=== PATIENT | female | born 1955 | race Two or more races ===

== ENCOUNTER 2025-06-14 22:40 | Emergency (ER) | payer BC, OTHER ==
[~2025-06-14] VITALS: Ht 160 cm; Wt 88.4 kg
[2025-06-14] MEDS: SODIUM CHLORIDE 0.9% 1,000 ML IVB ONE (23:00)
--- NOTE | 2025-06-14 23:11 | ED.PDOC ---
GI ASSESSMENT HPI Comments 70 year old female presents to the ED with a chief compliant of abdominal pain onset today (06/14/25) about 4 hours prior to ED arrival. Patient began experiencing epigastric pain as well as nausea, vomiting, diarrhea for the past 4 hours. Denies fever, chills, chest pain, shortness of breath, dizziness, headache, dysuria, hematuria, hematemesis, melena. No other symptoms or modifying factors present at this time. Chief Complaint: Abdominal Pain Time Seen by MD: 22:48 Reviewed Notes: Medications, Allergies Allergies: Coded Allergies: NO KNOWN ALLERGIES (Unverified , 06/14/25) Home Meds Active Scripts Ondansetron HCl (Ondansetron Hydrochloride) 8 Mg Tab, 8 MG PO Q6HP PRN, #30 TAB Prov:ABIGAIL SLAUGHTER MD 06/15/25 Information Source: Patient, Relative Mode of Arrival: Ambulatory Timing: Hours Duration: Since onset Prehospital treatment: None Quality: Sharp Severity: Moderate Recent: None Recent Hx of: None Pain Location: Epigastric Modifying Factors: Nothing Associated sign and symptoms: Nausea, Vomiting, Diarrhea, Abdominal Pain Past Medical History PAST MEDICAL HISTORY: Denies Surgical History: Cholecystectomy 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 Family History Family History: Reviewed,noncontributory to illness, No family hx of Cancer, No family hx of DM, No family hx of Heart leopoldo, No family hx of HTN, No family hx ofKidney leopoldo, No family hx of Liver leopoldo, No family hx of Lung leopoldo, No family hx of Stroke Social History Smoker: Non-Smoker Alcohol: Denies ETOH Use Drugs: Denies Drug Use Lives In: Home Constitutional: denies: chills, diaphoresis, fatigue, fever, malaise, sweats, weakness, others EENTM: denies: blurred vision, double vision, ear bleeding, ear discharge, ear drainage, ear pain, ear ringing, eye pain, eye redness, hearing loss, mouth pain, mouth swelling, nasal discharge, nose bleeding, nose congestion, nose pain, photophobia, tearing, throat pain, throat swelling, voice changes, others Respiratory: denies: cough, hemoptysis, orthopnea, SOB at rest, shortness of breath, SOB with excertion, stridor, wheezing, others Cardiovascular: denies: chest pain, dizzy spells, diaphoresis, Dyspnea on exertion, edema, irregular heart beat, left arm pain, lightheadedness, palpitations, PND, syncope, others Gastrointestinal: reports: abdominal pain, diarrhea, nausea, vomiting; denies: abdomen distended, blood streaked bowels, constipated, dysphagia, difficulty swallowing, hematemesis, melena, poor appetite, poor fluid intake, rectal bleeding, rectal pain, others Genitourinary: denies: abnormal vagina bleeding, burning, dyspareunia, dysuria, flank pain, frequency, hematuria, incontinence, pain, , vagina discharge, urgency, others Neurological: denies: dizziness, fainting, headache, left sided numbness, left sided weakness, numbness, paresthesia, pre-existing deficit, right sided numb ness, right sided weakness, seizure, speech problems, tingling, tremors, weakness, others Musculoskeletal: denies: back pain, gout, joint pain, joint swelling, muscle pain, muscle stiffness, neck pain, others Integumetry: denies: bruises, change in color, change in hair/nails, dryness, laceration, lesions, lumps, rash, wounds, others Allergic/Immunocompromised: denies: Difficulty Healing, Frequent Infections, Hives, Itching, others Hematologic/Lymphatic: denies: anemia, blood clots, easy bleeding, easy bruising, swollen glands, others Endocrine: denies: excessive hunger, excessive sweating, excessive thirst, excessive urination, flushing, intolerance to cold, intolerance to heat, unexplained weight gain, unexplained weight loss, others Psychiatric: denies: anxiety, bipolar disorder, depression, hopeless, panic disorder, schizophrenia, sleepless, suicidal, others All Other Systems: Reviewed and Negative Physical Exam General Appearance: Normal HEENT: Normal ENT Inspection, Pharynx Normal, TMs Normal Neck: Full Range of Motion, Non-Tender, Normal, Normal Inspection Respiratory: Chest Non-Tender, Lungs Clear, No Accessory Muscle Use, No Re spiratory Distress, Normal Breath Sounds Cardiovascular: No Edema, No JVD, No Murmur, No Gallop, Normal Peripheral Pulses, Regular Rate/Rhythm Breast Exam: Deferred Gastrointestinal: No Organomegaly, Non Tender, No Pulsatile Mass, Normal Bowel Sounds, Soft Genitalia: Deferred Pelvic: Deferred Rectal: Deferred Extremities: No calf tenderness, Normal capillary refill, Normal inspection, Normal range of motion, Non-tender, No pedal edema Musculoskeletal : Apperance: Normal Neurologic: Alert, it audit manager II-XII nml as Tested, No Motor Deficits, Normal Affect, Normal Mood, No Sensory Deficits Cerebellar Function: Normal Reflexes: Normal Skin: Dry, Normal Color, Warm Lymphatic: No Adenopathy Was a procedure done? Was a procedure done?: No GI differential Dx Differential Diagnosis: Cholecystitis, Gastritis/PUD, Gastroenteritis, GI hemorrhage, Pancreatitis, Kidney Stone, Other X-Ray, Labs, Meds, VS Vital Signs Date Time Temp Pulse Resp B/P (MAP) Pulse Ox O2 Delivery O2 Flow Rate FiO2 06/15/25 03:00 98.3 65 20 128/69 (88) 99 98.3 06/15/25 01:00 94 20 126/68 06/15/25 00:30 92 20 117/52 06/15/25 00:17 97.0 68 20 120/68 (85) 100 97.0 06/15/25 00:17 68 20 100 Room Air 06/14/25 22:41 97.6 93 20 119/63 100 97.6 Lab Test 06/14/25 23:07 06/14/25 22:52 Range/Units White Blood Count 11.0 H 4.4-10.8 10^3/uL Red Blood Count 4.72 4.0-5.20 10^6/uL Hemoglobin 14.1 12.2-16.2 g/dL Hematocrit 42.6 36.0-46.0 % Mean Corpuscular Volume 90.3 80.0-100.0 fL Mean Corpuscular Hemoglobin 30.0 28.0-32.0 pg Mean Corpuscular Hemoglobin Concent 33.2 32.0-36.0 g/dL Red Cell Distribution Width 15.5 H 11.8-14.3 % Platelet Count 274 140-450 10^3/uL Mean Platelet Volume 6.9 6.9-10.8 fL Neutrophils (%) (Auto) 78.8 37.0-80.0 % Lymphocytes (%) (Auto) 12.0 10.0-50.0 % Monocytes (%) (Auto) 8.7 0.0-12.0 % Eosinophils (%) (Auto) 0.3 0.0-7.0 % Basophils (%) (Auto) 0.2 0.0-2.0 % Neutrophils # (Auto) 8.6 1.6-8.6 10 ^3/uL Lymphocytes # (Auto) 1.3 0.4-5.4 10 ^3/uL Monocytes # (Auto) 1.0 0-1.3 10 ^3/uL Eosinophils # (Auto) 0 0-0.8 10 ^3/uL Basophils # (Auto) 0 0-0.2 10 ^3/uL Nucleated Red Blood Cells 0.0 % Sodium Level 141 136-145 mmol/L Potassium Level 4.1 3.5-5.1 mmol/L Chloride Level 105 98-107 mmol/L Carbon Dioxide Level 26 20-31 mmol/L Anion Gap 10 5-15 Blood Urea Nitrogen 13 9-23 mg/dL Creatinine 0.82 0.550-1.02 mg/dL Glomerular Filtration Rate Calc 78 >90 mL/min BUN/Creatinine Ratio 15.9 10.0-20.0 Serum Glucose 136 H 74-106 mg/dL Calcium Level 8.8 8.7-10.4 mg/dL Total Bilirubin 0.4 0.2-1.0 mg/dL Aspartate Amino Transferase (AST) 50 H 13-40 U/L Alanine Aminotransferase (ALT) 55 H 7-40 U/L Alkaline Phosphatase 89 46-116 U/L Total Protein 7.4 5.7-8.2 g/dL Albumin 4.2 3.2-4.8 g/dL Lipase 31 12-53 U/L POC Glucose 124 H 70-106 mg/dl Current Medications Medications (Trade) Dose Ordered Sig/Brenda Route Start Time Stop Time Status Last Admin Ondansetron HCl (Zofran) 4 mg ONCE ONCE IV 06/14/25 23:00 06/14/25 23:01 DC 06/15/25 00:30 Sodium Chloride 1,000 ml @ 1,000 mls/hr Q1H ONCE IVB 06/14/25 23:00 06/14/25 23:59 DC 06/14/25 23:00 Morphine Sulfate 4 mg ONCE ONCE IV 06/14/25 23:00 06/14/25 23:01 DC 06/15/25 00:30 Time of 1ST Reevaluation: 23:18 Reevaluation 1ST: Unchanged Patient Education/Counseling: Diagnosis, Treatment, Prognosis Family Education/Counseling: Diagnosis, Treatment, Prognosis Additional Information The following tests were ordered, and results were reviewed by me: CBC, CMP, LIPASE, UA, CT AB PEL WITH IV CON Additional Information was gathered from interviewing the following independent historians: daughter I reviewed and agreed with the following test results read by other providers: CT AB PEL WITH IV CON I discussed treatment and results with medical personnel and: patient and daughter Comprehensive systems review obtained and negative except for what is stated in the HPI. SEPSIS Sepsis Screen Date sepsis recognized/suspect: Jun 14, 2025 Time Sepsis recognized/suspect: 2244 Recent Procedure: No On Antibiotic Therapy: No Respiratory Rate >20: No Heart Rate >90: Yes Temp<36 C (96.8 F) or >38.3 C: No SBP <90 or MAP <65 mmHG: No New Acute Mental Status Change: No Is the patient on CPAP, BIPAP,: No Physician Orders Urinalysis (06/14/25 22:58) Ct Ab Pel With Iv Con Only (06/14/25 22:58) Vital Signs Date Time Temp Pulse Resp B/P (MAP) Pulse Ox O2 Delivery O2 Flow Rate FiO2 06/15/25 03:00 98.3 65 20 128/69 (88) 99 98.3 06/15/25 01:00 94 20 126/68 06/15/25 00:30 92 20 117/52 06/15/25 00:17 97.0 68 20 120/68 (85) 100 97.0 06/15/25 00:17 68 20 100 Room Air 06/14/25 22:41 97.6 93 20 119/63 100 97.6 Laboratory Tests Test 06/14/25 23:07 White Blood Count 11.0 10^3/uL (4.4-10.8) H Medications Medications Dose Ordered Sig/Brenda Route Start Time Stop Time Status Last Admin Dose Admin Morphine Sulfate 4 mg ONCE ONCE IV 06/14/25 23:00 06/14/25 23:01 DC 06/15/25 00:30 Ondansetron HCl 4 mg ONCE ONCE IV 06/14/25 23:00 06/14/25 23:01 DC 06/15/25 00:30 Sodium Chloride 1,000 ml @ 1,000 mls/hr Q1H ONCE IVB 06/14/25 23:00 06/14/25 23:59 DC 06/14/25 23:00 Departure 1 Departure Time of Disposition: 01:00 Impression: Primary Impression: Adrenal nodule Additional Impression: Enteritis Disposition: HOME / SELF CARE / HOMELESS Condition: Stable e-Prescriptions Ondansetron HCl (Ondansetron Hydrochloride) 8 Mg Tab 8 MG PO Q6HP PRN, #30 TAB Prov: ABIGAIL SLAUGHTER MD 06/15/25 Discharged With: Self Critical Care Note Critical Care Time?: No Stability Stability form required: No I personally scribed for ABIGAIL SLAUGHTER MD ([email or web address]) on 06/14/25 at 23:11. Electronically submitted by Amy Bejarano ([email or web address]). I personally scribed for ABIGAIL SLAUGHTER MD ([email or web address]) on 06/14/25 at 23:13. Electronically submitted by Amy Bejarano ([email or web address]). ABIGAIL SLAUGHTER MD Jun 14, 2025 23:11
[2025-06-14 23:23] LABS: Hematocrit 42.6 % (36.0-46.0); Hemoglobin 14.1 g/dL (12.2-16.2); Mean Corpuscular Hemoglobin 30.0 pg (28.0-32.0); Mean Corpuscular Volume 90.3 fL (80.0-100.0); Nucleated Red Blood Cells % 0.0 %
[2025-06-14 23:40] LABS: Albumin 4.2 g/dL (3.2-4.8); Alkaline Phosphatase 89 U/L (46-116); Anion Gap 10 (5-15); BUN/Creatinine Ratio 15.9 (10.0-20.0); Bilirubin, Total 0.4 mg/dL (0.2-1.0); Blood Urea Nitrogen 13 mg/dL (9-23); Calcium 8.8 mg/dL (8.7-10.4); Carbon Dioxide 26 mmol/L (20-31); Chloride 105 mmol/L (98-107); Lipase 31 U/L (12-53); Potassium 4.1 mmol/L (3.5-5.1); Sodium 141 mmol/L (136-145); Total Protein 7.4 g/dL (5.7-8.2)
[2025-06-14] MEDS: IOHEXOL 300 MG/ML 100ML BOTTLE IJ ONE (23:40)
[2025-06-14 23:44] LABS: Alanine Aminotransferase 55 U/L (7-40); Glucose 136 mg/dL (74-106)
[2025-06-15] MEDS: MORPHINE SULFATE 4 MG/ML SYR/VIAL IV ONE (00:30)
[2025-06-15] MEDS: ONDANSETRON HCL 4 MG/2 ML VIAL IV ONE (00:30)
--- NOTE | 2025-06-15 01:19 | DVH ---
Exam: CT CT AB PEL WITH IV CON ONLY History: abd pain Comparison Study: None TECHNIQUE: A digital stem setter image was obtained. During the uneventful, intravenous administration of c ontrast material, multislice data acquisition was obtained through the abdomen and pelvis. The data s et was subsequently reconstructed into multiplanar reformats. RADIATION DOSE: CTDI vol 27.28 mGy. DLP 1527.36 mGy.cm Findings: Evaluation is mildly degraded by motion artifact. Liver: Unremarkable. Spleen: Unremarkable. Pancreas: Unremarkable. Gallbladder: Prior cholecystectomy with mild dilation of the common bile duct. Adrenals: 2 cm indeterminate right adrenal nodule. Kidneys: Unremarkable. Pelvic Viscera: Unremarkable. Vasculature: Mild atherosclerotic aortoiliac calcifications. Retroperitoneum: Unremarkable. Bowel: No bowel obstruction. Nonspecific fluid-filled regions of small bowel. Musculoskeletal: Unremarkable. Soft tissues: Unremarkable Lungs: Basilar atelectasis/ scarring. Impression: 1. Nonspecific fluid-filled regions of small bowel may reflect an enteritis in the appropriate clinic al setting. 2. 2 cm indeterminate right adrenal nodule. Comparison with any prior outside imaging would be benef icial in assessing acuity and interval change. If no prior imaging is available, follow-up with a no nemergent MRI of the abdomen or dedicated adrenal CT is suggested. 3. Additional findings as detailed.
[2025-06-15] MEDS ORDERED: ONDA-180 PO (01:44)
[2025-06-15 03:00] VITALS: BP 128/69; PULSE 65; RESP 20; TEMP 98.3; O2SAT 99
== END 2025-06-15 03:07 | disposition home or self-care (01) ==
LOC: ER 22:40
DX: K52.9 Noninfective gastroenteritis and colitis, unspecified (principal); E27.9 Disorder of adrenal gland, unspecified; Z79.899 Other long term (current) drug therapy; Z90.49 Acquired absence of other specified parts of digestive tract
CPT/HCPCS: 36415; 74177; 80053; 82947; 83690; 85025; 96361; 96374; 96375; 99285; J2270; J2405; J7030; Q9967; 82962